=== PATIENT | male | born 1975 | race American Indian/Alaskan Native ===

== ENCOUNTER 2016-11-18 20:19 | Emergency (ER) | payer SELFPAY ==
[2016-11-18 20:44] VITALS: BP 143/105
[2016-11-18 21:46] LABS: Basophils % (Auto) 0.8 % (0.0-1.8); Eosinophils % (Auto) 5.7 % (0.0-4.3); Hematocrit 47.3 % (35.5-45.6); Hemoglobin 15.9 gm/dl (11.8-15.2); Mean Corpuscular HGB Conc 34 % (32-34); Mean Corpuscular Hemoglobin 34 pg (28-32); Mean Corpuscular Volume 101 fl (84-94); Platelet Count 192 K/mm3 (140-440); Red Blood Count 4.68 M/mm3 (3.65-5.03); Red Cell Distribution Width 15.4 % (13.2-15.2); White Blood Count 8.4 K/mm3 (4.5-11.0)
[2016-11-18 22:04] LABS: Anion Gap 22 mmol/L; BUN/Creatinine Ratio 8.33; Blood Urea Nitrogen 10 mg/dL (9-20); Calcium 9.1 mg/dL (8.4-10.2); Carbon Dioxide 24 mmol/L (22-30); Chloride 96.1 mmol/L (98-107); Glucose 101 mg/dL (75-100); Potassium 3.6 mmol/L (3.6-5.0); Sodium 138 mmol/L (137-145)
== END 2016-11-19 01:21 | disposition left against medical advice (07) ==
LOC: ED 20:19
DX: R07.9 Chest pain, unspecified (principal); R03.0 Elevated blood-pressure reading, without diagnosis of hypertension; Z53.21 Procedure and treatment not carried out due to patient leaving prior to being seen by health care provider
CPT/HCPCS: 36415; 80048; 84484; 85025; 93005; 93010